=== PATIENT | male | born 1975 | race African-American/Black ===

== ENCOUNTER 2019-07-12 11:19 | Day surgery (SDC) | payer BC ==
[2019-07-11 11:13] VITALS: BMI 34.8
[2019-07-12] MEDS ORDERED: LIDOCAINE HCL/PF 2% SDV 5ML VIAL ONE (12:55)
[2019-07-12] MEDS ORDERED: PROPOFOL 20 ML ONE ×3 (12:56→13:25)
[2019-07-12] MEDS ORDERED: MIDAZOLAM HCL 2 MG/2 ML SINGLE DOSE VIAL ONE (12:56)
[2019-07-12] MEDS ORDERED: ceFAZolin SODIUM 1 GM VIAL ONE (13:15)
[2019-07-12] MEDS ORDERED: ceFAZolin SODIUM 1 GM VIAL IVPB ONE (13:20)
[2019-07-12] MEDS ORDERED: SUCCINYLCHOLINE CHLORIDE 200 MG/10 ML SYRINGE ONE (13:23)
[2019-07-12] MEDS ORDERED: IOHEXOL 300 MG/ML INFUS..BTL IV ONE ×2 (13:25)
[2019-07-12] MEDS ORDERED: oxyCODONE HCL 5 MG TABLET PO PRN (13:56)
[2019-07-12] MEDS ORDERED: ONDANSETRON 4 MG/2 ML VIAL IVPUSH PRN (13:56)
[2019-07-12] MEDS ORDERED: LACTATED RINGERS SOLUTION 1,000 ML IV SCH (14:00)
--- NOTE | 2019-07-12 14:23 | OP ---
Operative Note - Note: Operative Date: 07/12/19 Pre-Operative Diagnosis: Right Hydronephrosis Operation: Right ureteroscopy ureteral dilation and stent placement Findings: ureteral stricture Post-Operative Diagnosis: Same as Pre-op Surgeon: Yonas Sandoval MD. Anesthesia: General Estimated Blood Loss (mls): 10 Operative Report Dictated: Yes
[2019-07-12] MEDS ORDERED: ELECTROLYTE-148 SOLN 1,000 ML IV SCH (14:30)
[2019-07-12] MEDS ORDERED: oxyCODONE HCL 5 MG TABLET ONE (16:17)
[2019-07-12 17:23] VITALS: BP 135/85; PULSE 82; TEMP 97.4
--- NOTE | 2019-07-13 07:51 | OP ---
DATE OF OPERATION: 07/12/2019 PREOPERATIVE DIAGNOSIS: Right hydronephrosis. POSTOPERATIVE DIAGNOSES: Right hydronephrosis, ureteral stricture. PROCEDURE PERFORMED: Cystoscopy, ureteroscopy, retrograde ureteral pyelogram and stent placement. SURGEON: Yonas Sandoval MD HISTORY: This is a 44-year-old gentleman with a history of a UTI, prior history of calculi. On preoperative imaging, he was found to have and obstructed right UPJ with moderate hydronephrosis. After discussing treatment options, the patient elected to undergo the above-stated procedure. The risks, benefits and alternative treatments were discussed in detail. All questions were answered. DESCRIPTION OF PROCEDURE: The patient was brought to the operating room and placed in the supine position. Once 2 g of Ancef was administered and a time-out was performed, the patient was then transferred to the dorsal lithotomy position, prepped and draped in the standard sterile fashion. At this time a 22-Syriac cystoscope sheath was placed into the bladder under direct vision. The bladder was unremarkable. A 0.03 guidewire was placed into the right renal pelvis. This was confirmed fluoroscopically. The dual-lumen was then passed. Retrograde ureteral pyelogram was performed, confirming UPJ obstruction on the right side. At this time a 2nd wire was placed over . It was difficult to get the dual-lumen to the mid ureter. At this time we attempted to place a 7.5-Syriac flexible ureteroscope over the wire. Again, it went up to approximately mid ureter. The entire mid and distal ureter was somewhat stenotic. At this time the decision was made to place a 6-Syriac double J stent over the wire to passively dilate the system and come back in approximately 3 weeks and repeat ureteroscopy. YONAS SANDOVAL M.D. [id number]
== END 2019-07-12 17:05 | disposition home or self-care (01) ==
LOC: JASU-SURG 11:19
PROVIDERS: ATTEND Urology
PROC: 0T768DZ Dilation of Right Ureter with Intraluminal Device, Via Natural or Artificial Opening Endoscopic (ICD-10-PCS; principal; 2019-07-12 13:00)
PROC: 0T768DZ Dilation of Right Ureter with Intraluminal Device, Via Natural or Artificial Opening Endoscopic (ICD-10-PCS; 2019-07-12 13:00)
DX: N13.1 Hydronephrosis with ureteral stricture, not elsewhere classified (principal)
CPT/HCPCS: 76000-TC-FY; 94760

== ENCOUNTER 2019-07-12 19:28 | Emergency (ER) | payer BC ==
[2019-07-12 19:53] VITALS: TEMP 97.8; BMI 34.8
[2019-07-12] MEDS ORDERED: SODIUM CHLORIDE 1,000 ML IV STA (19:54)
--- NOTE | 2019-07-12 19:55 | PDOC ---
Rapid Medical Evaluation Time Seen by Provider: 07/12/19 19:50 Medical Evaluation: Allergies Allergy/AdvReac Type Severity Reaction Status Date / Time tree nut Allergy Severe Swelling Verified 07/11/19 11:06 No Known Drug Allergies Allergy Verified 07/11/19 11:06 07/12/19 19:51 Pt presents for abdominal pain and hematuria s/p cystoscopy with R uretral stent placement this afternoon. He states his pain is a 12/10 and he is currently having blood clots when he urinates. States he was not given any medication for pain. Exam: R lower/upper abdomen tender and firm Orders: urine, labs Pt to proceed to the ER for further evaluation Discharge Disposition - Diagnosis Hematuria Qualifiers: Hematuria type: unspecified type Qualified Code(s): R31.9 - Hematuria, unspecified - Referrals - Patient Instructions - Post Discharge Activity
--- NOTE | 2019-07-12 21:02 | PDOC ---
Attending Attestation - Resident Resident Name: Navin Wong - ED Attending Attestation I have performed the following: I have examined & evaluated the patient, The case was reviewed & discussed with the resident, I agree w/resident's findings & plan - HPI HPI: 07/12/19 21:35 see resident hpi - Physicial Exam PE: 07/12/19 21:35 see resident exam - Medical Decision Making 07/12/19 21:35 44-year-old male status post ureteral stent placement now with hematuria and pain Case discussed with urology who recommends basic labs and discharged to follow- up in the office Morphine given for pain Patient is awake alert nontoxic-appearing
[2019-07-12] MEDS ORDERED: morphine CARPU-JECT 4 MG/1 ML DISP.SYRIN IVPUSH ONE (21:27)
[2019-07-12] MEDS ORDERED: morphine SULFATE 4 MG/ML VIAL ONE (21:31)
--- NOTE | 2019-07-12 21:37 | PDOC ---
History of Present Illness - General Chief Complaint: Pain Stated Complaint: PAIN Time Seen by Provider: 07/12/19 19:50 - History of Present Illness Initial Comments: Mr. Daniel Grove is a 44 y/o male with PMH significant for HTN, HLD, s/p cystoscopy and right UPJ stent this afternoon. Reports that he has been having right sided abdominal pain radiating to the groin, 03/16, since this evening. Reports gross hematuria and dysuria. Denies other penile discharge. Denies fever /chills. Denies chest pain/shortness of breath. Denies back pain. Reports nausea and numerous episodes of vomiting. Past History - Past Medical History Allergies/Adverse Reactions: Allergies Allergy/AdvReac Type Severity Reaction Status Date / Time tree nut Allergy Severe Swelling Verified 07/12/19 19:53 No Known Drug Allergies Allergy Verified 07/12/19 19:53 Home Medications: Ambulatory Orders Amlodipine Besylate 10 mg PO DAILY 07/11/19 Atorvastatin Ca [Lipitor] 80 mg PO HS 07/11/19 Cephalexin [Keflex] 500 mg PO BID 3 Days #6 capsule 07/12/19 Anemia: No Asthma: No Cancer: No Cardiac Disorders: No CVA: No COPD: No CHF: No Dementia: No Diabetes: No GI Disorders: No Disorders: No HTN: Yes Hypercholesterolemia: Yes Liver Disease: No Seizures: No Thyroid Disease: No - Surgical History Abdominal Surgery: Yes (hernia) - Immunization History Immunization Up to Date: Yes - Psycho Social/Smoking Cessation Hx Smoking History: Never smoked Have you smoked in the past 12 months: No Information on smoking cessation initiated: No Hx Alcohol Use: No Drug/Substance Use Hx: No Substance Use Type: None Hx Substance Use Treatment: No Review of Systems - Review of Systems Comments:: GENERAL/CONSTITUTIONAL: No fever or chills. No weakness._ HEAD, EYES, EARS, NOSE AND THROAT: No change in vision. No change in hearing. No sore throat._ CARDIOVASCULAR: No chest pain or shortness of breath_ RESPIRATORY: Denies cough, hemoptysis_ GASTROINTESTINAL: Reports abdominal pain, nausea, vomiting. No diarrhea or constipation._ GENITOURINARY: Reports dysuria and hematuria. MUSCULOSKELETAL: No joint or muscle swelling or pain. No neck or back pain._ SKIN: No rash_ NEUROLOGIC: No headache, vertigo, loss of consciousness, or change in strength/ sensation._ ENDOCRINE: No increased thirst. No abnormal weight change_ HEMATOLOGIC/LYMPHATIC: No anemia, easy bleeding, or history of blood clots._ ALLERGIC/IMMUNOLOGIC: No hives or skin allergy._ *Physical Exam - Vital Signs Last Vital Signs Temp Pulse Resp BP Pulse Ox 97.8 F 81 18 130/82 100 07/12/19 19:51 07/12/19 19:51 07/12/19 19:51 07/12/19 19:51 07/12/19 19:51 - Physical Exam GENERAL: Awake, alert, and oriented to person/place/time, in no acute distress_ HEAD: No signs of trauma, normoc ephalic, atraumatic _ EYES: PERRLA, EOMI, sclera anicteric, conjunctiva clear_ ENT: Hearing grossly normal, nares patent, oropharynx clear without exudates. No uvular deviation. Moist mucosa_ NECK: Normal ROM, supple, no lymphadenopathy, JVD, or masses_ LUNGS: No distress, speaks in full sentences, clear to auscultation bilaterally _ HEART: Regular rate and rhythm, normal S1 and S2, no murmurs appreciated, peripheral pulses normal and equal bilaterally._ ABDOMEN: Soft, right mid quadrant TTP, normoactive bowel sounds. No guarding, no rebound. No masses_ BACK: Mild right CVA TTP. : Minimal blood at the penile meatus, no rash, no swelling or tenderness of bilateral testicles. EXTREMITIES: Normal inspection, Normal range of motion, no edema. No clubbing or cyanosis_ NEUROLOGICAL: Cranial nerves II through XII grossly intact. Normal speech, normal gait, no focal sensorimotor deficits _ SKIN: Warm, Dry, normal turgor, no rashes or lesions noted_ ED Treatment Course - LABORATORY CBC & Chemistry Diagram: 07/12/19 21:39 07/12/19 21:39 - Medications Given in the ED: ED Medications Discontinued Medications Generic Name Dose Route Start Last Admin Trade Name Freq PRN Reason Stop Dose Admin Sodium Chloride 1,000 mls @ 1,000 mls/hr 07/12/19 19:54 07/12/19 21:22 Normal Saline - IV 07/12/19 20:53 1,000 mls/hr ASDIR STA Administration Medical Decision Making - Medical Decision Making 44M s/p cystoscopy and right UPJ stent presenting right gross hematuria and right sided abdominal pain. Dr. Sandoval called. 07/12/19 21:33 D/w Dr. Sandoval who states that gross hematuria and pain are normal findings post-op. Requests a CBC to r/o blood loss, and start on rocephin and f/u in the office tomorrow. Laboratory Tests 07/12/19 07/12/19 07/12/19 21:15 21:15 21:39 WBC 9.0 RBC 4.76 Hgb 14.0 Hct 41.1 MCV 86.4 MCH 29.4 MCHC 34.0 RDW 13.8 Plt Count 262 MPV 8.6 Absolute Neuts (auto) 7.9 Neutrophils % 87.8 H Lymphocytes % 7.0 L Monocytes % 4.8 Eosinophils % 0.1 Basophils % 0.3 Nucleated RBC % 0 PT with INR 12.60 INR 1.07 PTT (Actin FS) 37.6 H Sodium Potassium Chloride Carbon Dioxide Anion Gap BUN Creatinine Est GFR (CKD-EPI)AfAm Est GFR (CKD-EPI)NonAf Random Glucose Calcium Total Bilirubin AST ALT Alkaline Phosphatase Total Protein Albumin Urine Color Dk yellow Urine Appearance Clear Urine pH 6.0 Ur Specific [place] 1.023 Urine Protein 3+ H Urine Glucose (UA) Negative Urine Ketones Negative Urine Blood 3+ H Urine Nitrite Positive H Urine Bilirubin Negative Urine Urobilinogen 1.0 Ur Leukocyte Esterase 1+ H 07/12/19 21:39 WBC RBC Hgb Hct MCV MCH MCHC RDW Plt Count MPV Absolute Neuts (auto) Neutrophils % Lymphocytes % Monocytes % Eosinophils % Basophils % Nucleated RBC % PT with INR INR PTT (Actin FS) Sodium 138 Potassium 3.9 Chloride 102 Carbon Dioxide 32 Anion Gap 5 L BUN 16.1 Creatinine 1.4 H Est GFR (CKD-EPI)AfAm 70.82 Est GFR (CKD-EPI)NonAf 61.10 Random Glucose 136 H Calcium 8.5 Total Bilirubin 0.4 AST 27 ALT 66 H Alkaline Phosphatase 68 Total Protein 7.5 Albumin 3.7 Urine Color Urine Appearance Urine pH Ur Specific [place] Urine Protein Urine Glucose (UA) Urine Ketones Urine Blood Urine Nitrite Urine Bilirubin Urine Urobilinogen Ur Leukocyte Esterase 07/12/19 22:38 Labs reviewed. 07/12/19 22:52 Pt reassessed. Will give 1 percocet and zofran in the ED. Plan to d/c home with Lon and f/u with Dr. Sandoval tomorrow. All questions answered. Return precautions given. Pt verbalized understanding and agreement with plan. Discharge - Discharge Information Problems reviewed: Yes Clinical Impression/Diagnosis: Hematuria Qualifiers: Hematuria type: unspecified type Qualified Code(s): R31.9 - Hematuria, unspecified Condition: Stable - Admission No - Additional Discharge Information Prescriptions: Cephalexin [Keflex] 500 mg PO BID 3 Days #6 capsule - Follow up/Referral Referrals: Yonas Sandoval MD., MD [Staff Physician] - Dheeraj Agustin MD [Primary Care Provider] - - Patient Discharge Instructions Additional Instructions: Please call Dr. Sandoval's office tomorrow for post-op follow up. We prescribed you a course of Keflex (antibiotic) - please talk with Dr. Sandoval and see if he would like you to continue with this medication. If you experience any new, worsening, or concerning symptoms, please return to the emergency room. - Post Discharge Activity
[2019-07-12] MEDS ORDERED: CEFTRIAXONE 1 GM in DEXTROSE 5%-WATER - 100 ML IVPB ONE (21:40)
[2019-07-12] MEDS ORDERED: CEFTRIAXONE 1 GM/50 ML BAG ONE (21:42)
[2019-07-12 22:16] LABS: BASO % 0.3 % (0-2.0); EOS % 0.1 % (0-4.5); HEMATOCRIT 41.1 % (35.4-49); MCH 29.4 pg (25.7-33.7); MEAN CELL VOLUME 86.4 fl (80-96); MEAN PLT VOLUME 8.6 fl (7.5-11.1); MONO % 4.8 % (3.8-10.2); NEUT % 87.8 % (42.8-82.8); PLATELET COUNT 262 K/MM3 (134-434); RBC 4.76 M/mm3 (4.00-5.60); RDW 13.8 % (11.9-15.9)
[2019-07-12 22:26] LABS: INR 1.07 (0.83-1.09); PROTHROMBIN TIME (PATIENT) 12.6 SEC (9.7-13.0)
[2019-07-12 22:28] LABS: ACTIVATED PTT 37.6 SECONDS (25.2-36.5); URINE APPEARANCE CLEAR; URINE BILIRUBIN NEGATIVE (NEGATIVE); URINE COLOR DK YELLOW; URINE GLUCOSE (UA) NEGATIVE (NEGATIVE); URINE KETONE NEGATIVE (NEGATIVE); URINE LEUK ESTERASE 1+ (NEGATIVE); URINE NITRITE POSITIVE (NEGATIVE); URINE PROTEIN 3+ (NEGATIVE)
[2019-07-12] MEDS ORDERED: ONDANSETRON *ODT* 4 MG TABLET SL ONE (22:32)
[2019-07-12 22:37] LABS: ALBUMIN 3.7 g/dl (3.4-5.0); BILIRUBIN,TOTAL 0.4 mg/dL (0.2-1); BLOOD UREA NITROGEN 16.1 mg/dL (7-18); CALCIUM 8.5 mg/dL (8.5-10.1); CREATININE 1.4 mg/dL (0.55-1.3); POTASSIUM 3.9 mmol/L (3.5-5.1); TOT PROT 7.5 g/dl (6.4-8.2)
[2019-07-12 22:44] LABS: URINE RBC 62.3 /hpf (0-4); URINE WBC 0.4 /hpf (0-5)
[2019-07-12 22:45] LABS: URINE BACTERIA 1.4 /hpf (NEGATIVE)
[2019-07-12] MEDS ORDERED: ONDANSETRON *ODT* 4 MG TABLET ONE (22:46)
[2019-07-12 22:57] VITALS: BP 130/67; PULSE 75
== END 2019-07-12 22:56 | disposition home or self-care (01) ==
LOC: JER 19:28
PROC: 3E03329 Introduction of Other Anti-infective into Peripheral Vein, Percutaneous Approach (ICD-10-PCS; principal; 2019-07-12)
PROC: 3E033GC Introduction of Other Therapeutic Substance into Peripheral Vein, Percutaneous Approach (ICD-10-PCS; 2019-07-12)
PROC: 3E0337Z Introduction of Electrolytic and Water Balance Substance into Peripheral Vein, Percutaneous Approach (ICD-10-PCS; 2019-07-12)
DX: R31.9 Hematuria, unspecified (principal); Z91.018 Allergy to other foods; I10 Essential (primary) hypertension; E78.00 Pure hypercholesterolemia, unspecified
CPT/HCPCS: 36415; 80053; 81003; 85025; 85610; 85730; 86850; 86900; 86901; 87086; 99283-25; J7030; Q0162